=== PATIENT | male | born 1990 | race Caucasian/White ===

== ENCOUNTER 2023-12-13 18:37 | Outpatient (RCR) | payer MEDICARE, MEDICAID, SELFPAY | END 2023-12-13 23:59 | disposition home or self-care (01) | LOC: RPT 18:37 | PROVIDERS: ATTENDING PHYSICIAN Family Medicine | DX: G80.9 Cerebral palsy, unspecified (principal); R26.0 Ataxic gait; M62.89 Other specified disorders of muscle; M21.062 Valgus deformity, not elsewhere classified, left knee; M21.061 Valgus deformity, not elsewhere classified, right knee; M62.58 Muscle wasting and atrophy, not elsewhere classified, other site; R41.89 Other symptoms and signs involving cognitive functions and awareness; Z73.6 Limitation of activities due to disability; R29.6 Repeated falls | CPT/HCPCS: 97110; 97112; 97140 ==

== ENCOUNTER 2024-01-17 18:48 | Outpatient (RCR) | payer MEDICARE, MEDICAID, SELFPAY | END 2024-01-17 23:59 | disposition home or self-care (01) | LOC: RPT 18:48 | PROVIDERS: ATTENDING PHYSICIAN Family Medicine | DX: G80.9 Cerebral palsy, unspecified (principal); R26.0 Ataxic gait; M62.89 Other specified disorders of muscle; M21.062 Valgus deformity, not elsewhere classified, left knee; M21.061 Valgus deformity, not elsewhere classified, right knee; M62.58 Muscle wasting and atrophy, not elsewhere classified, other site; R41.89 Other symptoms and signs involving cognitive functions and awareness; Z73.6 Limitation of activities due to disability; R29.6 Repeated falls | CPT/HCPCS: 97110; 97112 ==

== ENCOUNTER 2024-02-14 16:29 | Outpatient (RCR) | payer MEDICARE, MEDICAID, SELFPAY | END 2024-02-14 23:59 | disposition home or self-care (01) | LOC: RPT 16:29 | PROVIDERS: ATTENDING PHYSICIAN Family Medicine | DX: G80.9 Cerebral palsy, unspecified (principal); R26.0 Ataxic gait; M62.89 Other specified disorders of muscle; M21.062 Valgus deformity, not elsewhere classified, left knee; M21.061 Valgus deformity, not elsewhere classified, right knee; M62.58 Muscle wasting and atrophy, not elsewhere classified, other site; R41.89 Other symptoms and signs involving cognitive functions and awareness; Z73.6 Limitation of activities due to disability; R29.6 Repeated falls | CPT/HCPCS: 97110; 97112; 97140 ==

== ENCOUNTER 2024-03-13 17:38 | Outpatient (RCR) | payer MEDICARE, MEDICAID, SELFPAY | END 2024-03-13 23:59 | disposition home or self-care (01) | LOC: RPT 17:38 | PROVIDERS: ATTENDING PHYSICIAN Family Medicine | DX: G80.9 Cerebral palsy, unspecified (principal); R26.0 Ataxic gait; M62.89 Other specified disorders of muscle; M62.58 Muscle wasting and atrophy, not elsewhere classified, other site; M21.062 Valgus deformity, not elsewhere classified, left knee; M21.061 Valgus deformity, not elsewhere classified, right knee; R41.89 Other symptoms and signs involving cognitive functions and awareness; Z73.6 Limitation of activities due to disability; R29.6 Repeated falls | CPT/HCPCS: 97110; 97112; 97140 ==

== ENCOUNTER 2024-04-10 19:02 | Outpatient (RCR) | payer MEDICARE, MEDICAID, SELFPAY | END 2024-04-10 23:59 | disposition home or self-care (01) | LOC: RPT 19:02 | PROVIDERS: ATTENDING PHYSICIAN Family Medicine | DX: G80.9 Cerebral palsy, unspecified (principal); R26.0 Ataxic gait; M62.58 Muscle wasting and atrophy, not elsewhere classified, other site; R41.89 Other symptoms and signs involving cognitive functions and awareness; M21.062 Valgus deformity, not elsewhere classified, left knee; M21.061 Valgus deformity, not elsewhere classified, right knee; M62.89 Other specified disorders of muscle; Z73.6 Limitation of activities due to disability; R29.6 Repeated falls | CPT/HCPCS: 97110; 97112 ==

== ENCOUNTER 2024-05-08 18:01 | Outpatient (RCR) | payer MEDICARE, MEDICAID, SELFPAY | END 2024-05-08 23:59 | disposition home or self-care (01) | LOC: RPT 18:01 | PROVIDERS: ATTENDING PHYSICIAN Family Medicine | DX: G80.9 Cerebral palsy, unspecified (principal); R26.0 Ataxic gait; M62.58 Muscle wasting and atrophy, not elsewhere classified, other site; R41.89 Other symptoms and signs involving cognitive functions and awareness; M21.062 Valgus deformity, not elsewhere classified, left knee; M21.061 Valgus deformity, not elsewhere classified, right knee; M62.89 Other specified disorders of muscle; Z73.6 Limitation of activities due to disability; R29.6 Repeated falls | CPT/HCPCS: 97110; 97112; 97140 ==

== ENCOUNTER 2024-06-19 19:09 | Outpatient (RCR) | payer MEDICARE, MEDICAID, SELFPAY | END 2024-06-19 23:59 | disposition home or self-care (01) | LOC: RPT 19:09 | PROVIDERS: ATTENDING PHYSICIAN Family Medicine | DX: R26.0 Ataxic gait (principal); M21.062 Valgus deformity, not elsewhere classified, left knee; M62.58 Muscle wasting and atrophy, not elsewhere classified, other site; M62.89 Other specified disorders of muscle; Z73.6 Limitation of activities due to disability; R29.6 Repeated falls; M21.061 Valgus deformity, not elsewhere classified, right knee; G80.9 Cerebral palsy, unspecified; R41.89 Other symptoms and signs involving cognitive functions and awareness | CPT/HCPCS: 97110; 97112; 97116; 97140 ==

== ENCOUNTER 2024-07-03 18:02 | Outpatient (RCR) | payer MEDICARE, MEDICAID, SELFPAY | END 2024-07-03 23:59 | disposition home or self-care (01) | LOC: RPT 18:02 | PROVIDERS: ATTENDING PHYSICIAN Family Medicine | DX: G80.9 Cerebral palsy, unspecified (principal); R26.0 Ataxic gait; M62.58 Muscle wasting and atrophy, not elsewhere classified, other site; R41.89 Other symptoms and signs involving cognitive functions and awareness; M21.062 Valgus deformity, not elsewhere classified, left knee; M21.061 Valgus deformity, not elsewhere classified, right knee; M62.89 Other specified disorders of muscle; Z73.6 Limitation of activities due to disability; R29.6 Repeated falls | CPT/HCPCS: 97112; 97116; 97140 ==

== ENCOUNTER 2024-08-21 18:00 | Outpatient (RCR) | payer MEDICARE, MEDICAID, SELFPAY | END 2024-08-21 23:59 | disposition home or self-care (01) | LOC: RPT 18:00 | PROVIDERS: ATTENDING PHYSICIAN Family Medicine | DX: G80.9 Cerebral palsy, unspecified (principal); R26.0 Ataxic gait; M62.58 Muscle wasting and atrophy, not elsewhere classified, other site; R41.89 Other symptoms and signs involving cognitive functions and awareness; M21.062 Valgus deformity, not elsewhere classified, left knee; M21.061 Valgus deformity, not elsewhere classified, right knee; M62.89 Other specified disorders of muscle; Z73.6 Limitation of activities due to disability; R29.6 Repeated falls | CPT/HCPCS: 97110; 97112; 97116 ==

== ENCOUNTER 2024-09-18 19:06 | Outpatient (RCR) | payer MEDICARE, MEDICAID, SELFPAY | END 2024-09-18 23:59 | disposition home or self-care (01) | LOC: RPT 19:06 | PROVIDERS: ATTENDING PHYSICIAN Family Medicine | DX: G80.9 Cerebral palsy, unspecified (principal); R26.0 Ataxic gait; M62.58 Muscle wasting and atrophy, not elsewhere classified, other site; R41.89 Other symptoms and signs involving cognitive functions and awareness; M21.062 Valgus deformity, not elsewhere classified, left knee; M21.061 Valgus deformity, not elsewhere classified, right knee; M62.89 Other specified disorders of muscle; Z73.6 Limitation of activities due to disability; R29.6 Repeated falls | CPT/HCPCS: 97110; 97112; 97116 ==

== ENCOUNTER 2024-10-16 18:08 | Outpatient (RCR) | payer MEDICARE, MEDICAID, SELFPAY | END 2024-10-16 23:59 | disposition home or self-care (01) | LOC: RPT 18:08 | PROVIDERS: ATTENDING PHYSICIAN Family Medicine | DX: G80.9 Cerebral palsy, unspecified (principal); R26.0 Ataxic gait; M62.58 Muscle wasting and atrophy, not elsewhere classified, other site; R41.89 Other symptoms and signs involving cognitive functions and awareness; M21.062 Valgus deformity, not elsewhere classified, left knee; M21.061 Valgus deformity, not elsewhere classified, right knee; M62.89 Other specified disorders of muscle; Z73.6 Limitation of activities due to disability; R29.6 Repeated falls | CPT/HCPCS: 97110; 97112; 97116 ==

== ENCOUNTER 2024-11-20 18:08 | Outpatient (RCR) | payer MEDICARE, MEDICAID, SELFPAY | END 2024-11-20 23:59 | disposition home or self-care (01) | LOC: RPT 18:08 | PROVIDERS: ATTENDING PHYSICIAN Family Medicine | DX: G80.9 Cerebral palsy, unspecified (principal); R26.0 Ataxic gait; M62.58 Muscle wasting and atrophy, not elsewhere classified, other site; R41.89 Other symptoms and signs involving cognitive functions and awareness; M21.062 Valgus deformity, not elsewhere classified, left knee; M21.061 Valgus deformity, not elsewhere classified, right knee; M62.89 Other specified disorders of muscle; Z73.6 Limitation of activities due to disability; R29.6 Repeated falls | CPT/HCPCS: 97110; 97112; 97116; 97140 ==

== ENCOUNTER 2024-12-18 18:11 | Outpatient (RCR) | payer MEDICARE, MEDICAID, SELFPAY | END 2024-12-18 23:59 | disposition home or self-care (01) | LOC: RPT 18:11 | PROVIDERS: ATTENDING PHYSICIAN Family Medicine | DX: R26.0 Ataxic gait (principal); G80.9 Cerebral palsy, unspecified; M62.58 Muscle wasting and atrophy, not elsewhere classified, other site; R41.89 Other symptoms and signs involving cognitive functions and awareness; M21.062 Valgus deformity, not elsewhere classified, left knee; M21.061 Valgus deformity, not elsewhere classified, right knee; M62.89 Other specified disorders of muscle; Z73.6 Limitation of activities due to disability; R29.6 Repeated falls | CPT/HCPCS: 97110; 97112; 97116 ==

== ENCOUNTER 2025-01-15 17:57 | Outpatient (RCR) | payer MEDICARE, MEDICAID, SELFPAY | END 2025-01-15 23:59 | disposition home or self-care (01) | LOC: RPT 17:57 | PROVIDERS: ATTENDING PHYSICIAN Family Medicine | DX: R26.0 Ataxic gait (principal); G80.9 Cerebral palsy, unspecified; M62.58 Muscle wasting and atrophy, not elsewhere classified, other site; R41.89 Other symptoms and signs involving cognitive functions and awareness; M21.062 Valgus deformity, not elsewhere classified, left knee; M21.061 Valgus deformity, not elsewhere classified, right knee; M62.89 Other specified disorders of muscle; Z73.6 Limitation of activities due to disability; R29.6 Repeated falls | CPT/HCPCS: 97110; 97112; 97116 ==

== ENCOUNTER 2025-02-19 18:10 | Outpatient (RCR) | payer MEDICARE, MEDICAID, SELFPAY | END 2025-02-19 23:59 | disposition home or self-care (01) | LOC: RPT 18:10 | PROVIDERS: ATTENDING PHYSICIAN Family Medicine | DX: R26.0 Ataxic gait (principal); G80.9 Cerebral palsy, unspecified; M62.58 Muscle wasting and atrophy, not elsewhere classified, other site; R41.89 Other symptoms and signs involving cognitive functions and awareness; M21.062 Valgus deformity, not elsewhere classified, left knee; M21.061 Valgus deformity, not elsewhere classified, right knee; Z73.6 Limitation of activities due to disability; M62.89 Other specified disorders of muscle; R29.6 Repeated falls; R56.9 Unspecified convulsions | CPT/HCPCS: 97110; 97112; 97116 ==

== ENCOUNTER 2025-03-19 18:16 | Outpatient (RCR) | payer MEDICARE, MEDICAID, SELFPAY | END 2025-03-19 23:59 | disposition home or self-care (01) | LOC: RPT 18:16 | PROVIDERS: ATTENDING PHYSICIAN Family Medicine | DX: R26.0 Ataxic gait (principal); G80.9 Cerebral palsy, unspecified; M62.58 Muscle wasting and atrophy, not elsewhere classified, other site; R41.89 Other symptoms and signs involving cognitive functions and awareness; M21.062 Valgus deformity, not elsewhere classified, left knee; M21.061 Valgus deformity, not elsewhere classified, right knee; Z73.6 Limitation of activities due to disability; R56.9 Unspecified convulsions; R29.6 Repeated falls; M62.89 Other specified disorders of muscle | CPT/HCPCS: 97110; 97112; 97116 ==

== ENCOUNTER 2025-04-09 18:06 | Outpatient (RCR) | payer MEDICARE, MEDICAID, SELFPAY | END 2025-04-09 23:59 | disposition home or self-care (01) | LOC: RPT 18:06 | PROVIDERS: ATTENDING PHYSICIAN Family Medicine | DX: R26.0 Ataxic gait (principal); G80.9 Cerebral palsy, unspecified; M62.58 Muscle wasting and atrophy, not elsewhere classified, other site; R41.89 Other symptoms and signs involving cognitive functions and awareness; M21.062 Valgus deformity, not elsewhere classified, left knee; M21.061 Valgus deformity, not elsewhere classified, right knee; Z73.6 Limitation of activities due to disability; R56.9 Unspecified convulsions; R29.6 Repeated falls; M62.89 Other specified disorders of muscle | CPT/HCPCS: 97110; 97112; 97116 ==

== ENCOUNTER 2025-05-21 18:04 | Outpatient (RCR) | payer MEDICARE, MEDICAID, SELFPAY | END 2025-05-21 23:59 | disposition home or self-care (01) | LOC: RPT 18:04 | PROVIDERS: ATTENDING PHYSICIAN Family Medicine | DX: R26.0 Ataxic gait (principal); G80.9 Cerebral palsy, unspecified; M62.58 Muscle wasting and atrophy, not elsewhere classified, other site; R41.89 Other symptoms and signs involving cognitive functions and awareness; M21.062 Valgus deformity, not elsewhere classified, left knee; M21.061 Valgus deformity, not elsewhere classified, right knee; Z73.6 Limitation of activities due to disability; R56.9 Unspecified convulsions; R29.6 Repeated falls; M62.89 Other specified disorders of muscle | CPT/HCPCS: 97110; 97112; 97116 ==

== ENCOUNTER 2025-06-18 18:13 | Outpatient (RCR) | payer MEDICARE, MEDICAID, SELFPAY | END 2025-06-18 23:59 | disposition home or self-care (01) | LOC: RPT 18:13 | PROVIDERS: ATTENDING PHYSICIAN Family Medicine | DX: R26.0 Ataxic gait (principal); G80.9 Cerebral palsy, unspecified; M62.58 Muscle wasting and atrophy, not elsewhere classified, other site; R41.89 Other symptoms and signs involving cognitive functions and awareness; M21.062 Valgus deformity, not elsewhere classified, left knee; M21.061 Valgus deformity, not elsewhere classified, right knee; Z73.6 Limitation of activities due to disability; R56.9 Unspecified convulsions; R29.6 Repeated falls; M62.89 Other specified disorders of muscle | CPT/HCPCS: 97110; 97112; 97116 ==

== ENCOUNTER → 2025-07-06 13:29 | Outpatient (REF) | payer MEDICARE, MEDICAID, SELFPAY | LOC: RAD 13:29 | PROVIDERS: ATTENDING PHYSICIAN Physician Assistant; FAMILY PHYSICIAN Family Medicine | DX: M41.27 Other idiopathic scoliosis, lumbosacral region (principal); R26.81 Unsteadiness on feet; M25.551 Pain in right hip | CPT/HCPCS: 72110; 73523 ==

== ENCOUNTER 2025-07-09 18:02 | Outpatient (RCR) | payer MEDICARE, MEDICAID, SELFPAY | END 2025-07-09 23:59 | disposition home or self-care (01) | LOC: RPT 18:02 | PROVIDERS: ATTENDING PHYSICIAN Family Medicine | DX: R26.0 Ataxic gait (principal); G80.9 Cerebral palsy, unspecified; M62.58 Muscle wasting and atrophy, not elsewhere classified, other site; R41.89 Other symptoms and signs involving cognitive functions and awareness; M21.062 Valgus deformity, not elsewhere classified, left knee; M21.061 Valgus deformity, not elsewhere classified, right knee; Z73.6 Limitation of activities due to disability; R56.9 Unspecified convulsions; M62.89 Other specified disorders of muscle; R29.6 Repeated falls | CPT/HCPCS: 97110; 97112; 97116; 97140 ==

== ENCOUNTER 2025-08-13 18:04 | Outpatient (RCR) | payer MEDICARE, MEDICAID, SELFPAY | END 2025-08-13 23:59 | disposition home or self-care (01) | LOC: RPT 18:04 | PROVIDERS: ATTENDING PHYSICIAN Family Medicine | DX: R26.0 Ataxic gait (principal); G80.9 Cerebral palsy, unspecified; M62.58 Muscle wasting and atrophy, not elsewhere classified, other site; R41.89 Other symptoms and signs involving cognitive functions and awareness; M21.062 Valgus deformity, not elsewhere classified, left knee; M21.061 Valgus deformity, not elsewhere classified, right knee; Z73.6 Limitation of activities due to disability; M62.89 Other specified disorders of muscle; R56.9 Unspecified convulsions; R29.6 Repeated falls | CPT/HCPCS: 97110; 97112; 97116 ==

== ENCOUNTER 2025-08-27 12:24 | Outpatient (RCR) | payer MEDICARE, MEDICAID, SELFPAY | END 2025-08-27 23:59 | disposition home or self-care (01) | LOC: RPT 12:24 | PROVIDERS: ATTENDING PHYSICIAN Family Medicine | DX: R26.0 Ataxic gait (principal); G80.9 Cerebral palsy, unspecified; M62.58 Muscle wasting and atrophy, not elsewhere classified, other site; R41.89 Other symptoms and signs involving cognitive functions and awareness; M21.062 Valgus deformity, not elsewhere classified, left knee; M21.061 Valgus deformity, not elsewhere classified, right knee; Z73.6 Limitation of activities due to disability; M62.89 Other specified disorders of muscle; R56.9 Unspecified convulsions; R29.6 Repeated falls | CPT/HCPCS: 97112; 97116; 97140 ==

== ENCOUNTER 2025-10-15 13:50 | Outpatient (RCR) | payer MEDICARE, MEDICAID, SELFPAY | END 2025-10-15 23:59 | disposition home or self-care (01) | LOC: RPT 13:50 | PROVIDERS: ATTENDING PHYSICIAN Family Medicine | DX: R26.0 Ataxic gait (principal); G80.9 Cerebral palsy, unspecified; M62.58 Muscle wasting and atrophy, not elsewhere classified, other site; R41.89 Other symptoms and signs involving cognitive functions and awareness; M21.062 Valgus deformity, not elsewhere classified, left knee; M21.061 Valgus deformity, not elsewhere classified, right knee; Z73.6 Limitation of activities due to disability; M62.89 Other specified disorders of muscle; R56.9 Unspecified convulsions; R29.6 Repeated falls | CPT/HCPCS: 97110; 97112; 97116 ==

== ENCOUNTER → 2025-10-25 15:12 | Outpatient (REF) | payer MEDICARE, MEDICAID, SELFPAY | LOC: RAD 15:12 | PROVIDERS: ATTENDING PHYSICIAN Internal Medicine Critical Care Medicine; FAMILY PHYSICIAN Family Medicine | DX: R05.3 Chronic cough (principal); Z87.01 Personal history of pneumonia (recurrent); R09.89 Other specified symptoms and signs involving the circulatory and respiratory systems | CPT/HCPCS: 71250 ==